=== PATIENT | male | born 1990 | race Caucasian/White ===

== ENCOUNTER 2020-12-28 16:55 | Emergency (ER) | payer OTHER, SELFPAY ==
[2020-12-28 16:56] VITALS: BP 228/112; PULSE 99; RESP 17; TEMP 36.4; O2SAT 98; BMI 44.6
[2020-12-28 17:00] VITALS: BP 199/96
--- NOTE | 2020-12-28 17:39 | CT_ITS ---
STUDY: CT ABDOMEN AND PELVIS WITH CONTRAST REASON FOR EXAM: Male, 30 years old. mid abdominal pain RADIATION DOSAGE (If Supplied By Facility): CTDIvol = ( 49.98 ) mGy, DLP = ( 1883.03 ) mGycm TECHNIQUE: Transaxial images were obtained from the dome of the diaphragm to the symphysis pubis without oral contrast. IV 100mL Isovue-370 was administered. Sagittal and coronal images were reconstructed. Individualized dose optimization techniques were used for this CT. COMPARISON: None. FINDINGS: The visualized lung bases are unremarkable. The visualized portions of the heart are within normal limits. Normal liver. Normal gallbladder and extrahepatic biliary system. Normal spleen. Normal pancreas. Normal bilateral adrenal glands. Normal right kidney. Normal left kidney. Evaluation of the GI tract is limited by the absence of oral contrast. Normal visualized stomach. Normal small intestine. Normal colon. The appendix is visualized and appears normal. Normal abdominal aorta. Normal inferior vena cava. Normal retroperitoneum. Normal urinary bladder. Normal abdominal wall. Normal osseous structures. CT/Abdomen/Pelvis W IV Cont ONLY IMPRESSION: No definite acute or significant abnormality seen. Electronically Signed: Edgardo Kirby MD at 19:06 EST , Service support ,
[2020-12-28 17:59] LABS: Absolute Lymphocyte Count 2.15 X10^3/uL (0.83-4.51); Absolute Neutrophil Count 7.1 X10^3/uL (2.0-7.7); Basophil# 0.08 X10^3/uL; Basophil% 0.8 % (0-1); Eosinophil# 0.09 X10^3/uL; Eosinophils% 0.9 % (0-5); Hematocrit 49.3 % (40-54); Hemoglobin 16.3 g/dL (13.0-16.5); Lymphocyte # 2.15 X10^3/ul (4.0); Lymphocyte % 20.7 % (19-41); Mean Corp Hgb Conc 33.1 g/dL (32-36); Mean Corpuscular Hgb 29.8 pg (27.0-32.0); Mean Corpuscular Volume 90.1 fL (80-94); Mean Platelet Vol. 9.9 fl (6.2-12.0); Monocyte# 0.86 X10^3/uL; Monocyte% 8.3 % (0-10); NRBC Flagged by Analyzer 0 % (0-5); Neutrophil # 7.11 X10^3/uL (2.7-7.7); Neutrophil % 68.5 % (47-70); Platelet Count 372 K/mm3 (150-450); RBC Distribution Width CV 13.3 % (11.6-14.6); RBC Distribution Width SD 44.6 fl (35.1-43.9); Red Blood Count 5.47 M/mm3 (4.6-6.2); White Blood Count 10.4 K/mm3 (4.4-11.0)
[2020-12-28] MEDS: Ondansetron 4 MG/2 ML Vial IV (18:04)
[2020-12-28] MEDS: Morphine 4 MG/ML Syringe IV (18:04)
[2020-12-28 18:16] LABS: ALB/GLOB Ratio 1.1 RATIO (0.9-2.4); AST(SGOT) 65 U/L (15-37); Alanine Aminotransfer ALT/SGPT 133 U/L (16-61); Albumin, Serum 4.4 g/dL (3.2-5.0); Alkaline Phosphatase 106 U/L (45-117); Anion Gap 5 (5-15); BUN 12 mg/dL (7-18); BUN/Creat Ratio 10.1 RATIO (10-20); Calcium,Total 9.8 mg/dL (8.5-10.1); Chloride 107 mmol/L (98-107); Creatinine, Serum 1.19 mg/dL (0.70-1.30); EST Glomerular Filtration Rate 76 mL/min (>60); Est Glom Filt Rate - Afr Amer 92 mL/min (>60); Estimated Creatinine Clearance 95.79 ml/min; Globulin 3.9 g/dL (2.2-4.2); Glucose 90 mg/dL (74-106); Lipase 142 U/L (73-393); Potassium 4.2 mmol/L (3.5-5.1); Protein, Total 8.3 g/dL (6.4-8.2); Sodium Level 139 mmol/L (136-145)
[2020-12-28] MEDS: Famotidine 200 MG/20 ML MDV 20 MG in 0.9% Normal Saline (Pres. free 8 ML 300 MG IV (18:46)
[2020-12-28 19:48] VITALS: BP 200/89
--- NOTE | 2020-12-28 19:54 | ED.VIS.GEN ---
History of Present Illness Chief Complaint: Abd Pain Narrative: 30-year-old male presenting with epigastric pain and GERD. Patient states he did vomit earlier today. He states he has not had known history of GERD and has not been watching his diet too closely. He denies fever, chills, diarrhea, constipation. He denies any abdominal trauma. Patient states he used to have acid reflux medication but no longer takes this. Past Medical History - Allergies and Home Meds Allergies/Adverse Reactions: Allergies No Known Allergies Allergy (Verified 12/28/20 16:57) Primary Care Physician: [facility],[place] [Primary Care Provider] - Prior records reviewed: No Past Medical History: - - GERD, hypertension Surgical History: noncontributory Lives: Spouse/ Significant Other Smoking Status: Never smoker Alcohol: Occasional Drugs: None Review of Systems General: Denies: Chills, Fever, Sweats Eyes: Denies: Visual changes - bilaterally, Diplopia ENT: Denies: Rhinorrhea, Sore throat Cardiovascular: Denies: Chest pain, Palpitations Respiratory: Denies: Dyspnea, Cough, Dyspnea on exertion Gastrointestinal: Reports: Abdominal pain, Nausea, Vomiting. Denies: Diarrhea, Constipation Genitourinary: Denies: Dysuria, Hematuria Musculoskeletal: Denies: Myalgias, Arthralgias Skin: Denies: Rash, Abscess Neurological: Denies: Headache, Weakness, Parasthesia Psych: Denies: Depression, Anxiety Physical Exam Vital Signs/Narrative: Vital Signs Temp Pulse Resp BP Pulse Ox 12/28/20 19:48 200/89 H 12/28/20 17:00 199/96 H 12/28/20 16:56 97.5 F L 99 17 228/112 H 98 General: Obese, No Acute Distress Head: Normocephalic, Atraumatic Eyes: Perrl, EOMI. Negative for: Scleral icterus ENT: Moist mucous membranes, No rhinorrhea Cardiovascular: Regular rate, Regular rhythm Respiratory: No distress, CTA bilaterally Abdomen: Soft, Nondistended, Tender - Mild gastric tenderness Extremities: Nontender, No edema Skin: Normal color, No rash. Negative for: Cyanosis, Diaphoresis, Jaundice Neurological: Alert, Oriented x3, Cranial nerves II-XII grossly intact Psychological: Normal affect, Normal Mood Diagnostic/Tx/Re-eval Clinical Impression(s) from Imaging Studies Abdomen/Pelvis CT 12/28/20 17:39 IMPRESSION: No definite acute or significant abnormality seen. Electronically Signed: Edgardo Kirby MD at 19:06 EST , Service support , Laboratory Data 12/28/20 12/28/20 17:55 17:55 WBC 10.4 RBC 5.47 Hgb 16.3 Hct 49.3 MCV 90.1 MCH 29.8 MCHC 33.1 RDW Std Deviation 44.6 H RDW Coeff of Linda 13.3 Plt Count 372 MPV 9.9 Immature Gran % (Auto) 0.800 Neut % (Auto) 68.5 Lymph % (Auto) 20.7 [place] % (Auto) 8.3 Eos % (Auto) 0.9 Baso % (Auto) 0.8 Absolute Neuts (auto) 7.1 Absolute Lymphs (auto) 2.15 Nucleated RBC % 0 Sodium 139 Potassium 4.2 Chloride 107 Carbon Dioxide 27.0 Anion Gap 5 BUN 12 Creatinine 1.19 Estim Creat Clear Calc 95.79 Est GFR (MDRD) Af Amer 92 Est GFR (MDRD) Non-Af 76 BUN/Creatinine Ratio 10.1 Glucose 90 Calcium 9.8 Total Bilirubin 0.50 AST 65 H ALT 133 H Alkaline Phosphatase 106 Total Protein 8.3 H Albumin 4.4 Globulin 3.9 Albumin/Globulin Ratio 1.1 Lipase 142 - Medical Decision Making 30-year-old male presenting with epigastric pain and history of GERD. He does admit that he does not stick to a good diet for somebody with gastric reflux. Lab work was obtained and is unremarkable with exception of an AST of 65 and ALT of 133. Lipase is negative. His other LFTs are normal. GFR is normal. He has stable hemoglobin and hematocrit. CT of the abdomen pelvis does identify any acute pathology. Patient was noted to have elevated blood pressures throughout his stay. He states he used to have elevated blood pressure but has not checked this in some time. I do believe patient will require hypertensive medication for home. I will start him on Norvasc 10 mg p.o. daily. He is counseled on foods to avoid with degree of acid reflux. He is also counseled that he needs to make follow-up with his primary care provider at the [place]. Patient knowledges understanding. Impression: 1. Epigastric pain 2. Hypertension ED Disposition - Plan for ED Patient: Disposition: Home or Assisted Living Instructions: ED GERD (Adult), ED Hypertension, Established Prescriptions: Amlodipine [Norvasc] 10 mg PO DAILY #30 tab Prescription Printed Omeprazole 0 mg PO DAILY #30 capsule.dr Prescription Printed Ondansetron [Zofran Odt] 4 mg PO Q8H PRN PRN #20 tab PRN Reason: Nausea Prescription Printed [facility]errals: [facility] [Primary Care Provider] -
[2020-12-28] MEDS: amLODIPine 10 MG Tablet PO (20:11)
== END 2020-12-28 20:15 | disposition home or self-care (01) ==
PROVIDERS: Emergency Provider Student in an Organized Health Care Education/Training Program
DX: R10.13 Epigastric pain (principal); K21.9 Gastro-esophageal reflux disease without esophagitis; I10 Essential (primary) hypertension; Z79.899 Other long term (current) drug therapy
CPT/HCPCS: 74177; 80053; 83690; 85025; 96365; 96375; 99284; A4216; J2405; J3490

== ENCOUNTER 2024-08-28 11:46 | Emergency (ER) | payer OTHER, SELFPAY ==
[2024-08-28 11:46] VITALS: BP 189/93; PULSE 125; RESP 16; TEMP 37.2; O2SAT 98; BMI 41.8
[2024-08-28 12:20] LABS: Absolute Lymphocyte Count 1.43 X10^3/uL (0.83-4.51); Absolute Neutrophil Count 5.9 X10^3/uL (2.0-7.7); Basophil# 0.08 X10^3/uL; Eosinophil# 0.02 X10^3/uL; Eosinophils% 0.2 % (0-5); Hematocrit 47.1 % (40-54); Hemoglobin 16.8 g/dL (13.0-16.5); Lymphocyte # 1.43 X10^3/ul (0.83-4.51); Lymphocyte % 17.8 % (19-41); Mean Corp Hgb Conc 35.7 g/dL (32-36); Mean Corpuscular Hgb 30.3 pg (27.0-32.0); Mean Platelet Vol. 10.4 fl (6.2-12.0); Monocyte# 0.57 X10^3/uL; Monocyte% 7.1 % (0-10); NRBC Flagged by Analyzer 0 % (0-5); Neutrophil # 5.88 X10^3/uL (2.7-7.7); Neutrophil % 73.2 % (47-70); Platelet Count 269 K/mm3 (150-450); RBC Distribution Width SD 36.7 fl (35.1-43.9); Red Blood Count 5.54 M/mm3 (4.6-6.2)
[2024-08-28 12:37] LABS: ALB/GLOB Ratio 1.3 RATIO (0.9-2.4); AST(SGOT) 20 U/L (15-37); Alanine Aminotransfer ALT/SGPT 36 U/L (16-61); Albumin, Serum 4.7 g/dL (3.2-5.0); Alkaline Phosphatase 113 U/L (45-117); Anion Gap 9 (5-15); BUN 12 mg/dL (7-18); BUN/Creat Ratio 10.6 RATIO (10-20); Calcium,Total 9.6 mg/dL (8.5-10.1); Chloride 106 mmol/L (98-107); Creatinine, Serum 1.13 mg/dL (0.70-1.30); EST Glomerular Filtration Rate 79 mL/min (>60); Est Glom Filt Rate - Afr Amer 95 mL/min (>60); Estimated Creatinine Clearance 129.84 ml/min; Globulin 3.6 g/dL (2.2-4.2); Glucose 109 mg/dL (74-106); Lipase 24 U/L (13-75); Potassium 3.7 mmol/L (3.5-5.1); Protein, Total 8.3 g/dL (6.4-8.2); Sodium Level 137 mmol/L (136-145)
[2024-08-28 14:06] VITALS: PULSE 96; RESP 18; O2SAT 97
== END 2024-08-28 14:07 | disposition home or self-care (01) ==
PROVIDERS: Emergency Provider Emergency Medicine; Visit Provider Emergency Medicine
DX: R10.9 Unspecified abdominal pain (principal); I10 Essential (primary) hypertension; K21.9 Gastro-esophageal reflux disease without esophagitis
CPT/HCPCS: 76705; 80053; 83690; 85025; 99283; A4216